=== PATIENT | male | born 1985 | race Caucasian/White ===

== ENCOUNTER 2018-12-07 01:24 | Emergency (ER) | payer BC ==
--- NOTE | 2018-12-07 01:41 | ER Report ---
History and Physical Time Seen By MD: 01:27 HPI/ROS CHIEF COMPLAINT: Palpitations HISTORY OF PRESENT ILLNESS: 33-year-old male visiting from [place]. He is on a snowmobiling vacation here in [place]. He's been here is for for 5 days already. Tonight he was sleeping when he woke up with palpitations in his chest. Patient reports a history of previous problems. He underwent a treadmill in 2013 and a Holter monitor for one month. They didn't find o ccasional PVC. No evidence of SVT was found. Patient states his mother suffers from SVT. Patient denies alcohol to excess, caffeine to excess, stimulants to excess, recreational drugs. Patient notes a fluttering sensation in his chest. He notes no diaphoresis, shortness of breath or near-syncope sensation. REVIEW OF SYSTEMS: Respiratory: No cough, no dyspnea. Cardiovascular: As above Gastrointestinal: No vomiting, no abdominal pain. Musculoskeletal: No back pain. Allergies: Coded Allergies: No Known Drug Allergies (Unverified , 12/07/18) Home Meds Active Scripts Atenolol (ATENOLOL) 25 Mg Tablet, 1 TAB PO QDAY PRN for reduction of palpitations, #30 TAB Prov:ERIKA ALFARO Roby DO 12/07/18 Reviewed Nurses Notes: Yes Old Medical Records Reviewed: Yes Constitutional Vital Sign - Last 24 Hours 12/07/18 12/07/18 12/07/18 12/07/18 01:24 01:27 01:28 01:30 Temp 97.6 Pulse ??? 100 Resp 14 B/P (MAP) 143/102 (116) 154/94 154/94 (114) Pulse Ox 93 O2 Delivery Room Air 12/07/18 12/07/18 12/07/18 12/07/18 01:39 01:54 02:00 02:09 Pulse 92 86 95 Resp 25 19 8 B/P (MAP) 147/99 (115) Pulse Ox 95 95 94 Physical Exam General Appearance: The patient is alert, has no immediate need for airway protection and no current signs of toxicity. Vital signs stable, afebrile, pulse ox normal HEENT: Pupils equal and round no injection. Oropharynx without redness or exudate, mucous. Membranes are moist Respiratory: Chest is non tender, lungs are clear to auscultation. No chest wall tenderness Cardiac: regular rate and rhythm Gastrointestinal: Abdomen is soft and non tender, no masses, bowel sounds normal. Musculoskeletal: Neck: Neck is supple and non tender. No lymphadenopathy Extremities have full range of motion and are non tender. Skin: No rashes or lesions. DIFFERENTIAL DIAGNOSIS: After history and physical exam differential diagnosis was considered for palpitations, SVT, anxiety, A. fib Medical Decision Making EKG/Imaging EKG Interpretation 12 lead EK Rhythm: normal sinus rhythm [place]: normal QRS: normal ST segments: normal, no evidence of ischemia or dysrhythmia ED Course/Re-evaluation ED Course Patient was admitted to an examination room. H&P was done. The differential diagnosis was considered. On clinical examination. Patient has a benign exam. He is stable vital signs. He is watched on the night monitor. He has no PVCs. He has several palpitations, but there are no changes noted on the night monitor. Patient admits he's had extensive evaluation before. With a previous treadmill and a Holter monitor for 30 days. 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 Patient agreeable to trying atenolol 25 mg as needed for palpitations. Prescription is provided. Patient advised to follow- up with primary care and cardiology. Upon returning home to [place] Decision to Disposition Date: Dec 07, 2018 Decision to Disposition Time: 01:46 Depart Departure Latest Vital Signs Vital Signs Date Time Temp Pulse Resp B/P (MAP) Pulse Ox O2 Delivery O2 Flow Rate FiO2 12/07/18 02:09 95 8 94 12/07/18 02:00 147/99 (115) 12/07/18 01:28 97.6 Room Air Impression: Primary Impression: Palpitations Condition: Improved Disposition: HOME OR SELF-CARE New Scripts Atenolol (ATENOLOL) 25 Mg Tablet 1 TAB PO QDAY PRN for reduction of palpitations, #30 TAB Prov: ERIKA ALFARO DO 12/07/18 Patient Instructions: Palpitations (ED) Additional Instructions: Follow-up with your primary care doctor and cardiology when you return to [place] if you have further symptoms ERIKA ALFARO DO Dec 07, 2018 01:41
--- NOTE | 2018-12-07 01:53 | EKG ---
FACILITY: [facility] PATIENT NAME: ALEN MONROE : [id number] MR: [id number] V: [id number] EXAM DATE: ORDERING PHYSICIAN: ERIKA ALFARO TECHNOLOGIST: AMANDA Wu Reason : Blood Pressure : / mmHG Vent. Rate : 090 BPM Atrial Rate : 090 BPM P-R Int : 160 ms QRS Dur : 084 ms QT Int : 372 ms P-R-T Axes : 068 -05 026 degrees QTc Int : 455 ms Normal sinus rhythm Normal ECG No previous ECGs available Confirmed by LEONARD LR ([id number]) on 12/07/2018 6:38:06 AM Referred By: Confirmed By:LEONARD LR
[2018-12-07 02:00] VITALS: BP 147/99
[2018-12-07] MEDS ORDERED: ATEN-65 PO (02:04)
[2018-12-07] MEDS ORDERED: ATENOLOL 25 MG TAB PO ONE (02:05)
== END 2018-12-07 02:13 | disposition home or self-care (01) ==
LOC: ER 01:38
DX: R00.2 Palpitations (principal)
CPT/HCPCS: 93005; 99283